=== PATIENT | female | born 1995 | race Caucasian/White ===

== ENCOUNTER 2016-07-20 20:19 | Emergency (ER) | payer SELFPAY ==
[~2016-07-20] VITALS: Ht 170.2 cm; Wt 110.0 kg
[2016-07-20 21:13] VITALS: Ht 170.2 cm; Wt 110.0 kg
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
[2016-07-20] MEDS ORDERED: IBUPROFEN 600 MG TAB PO ONE (22:30)
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
[2016-07-20] MEDS ORDERED: CYCL-319 PO (23:46)
[2016-07-20] MEDS ORDERED: IBUP-1542 PO (23:46)
== END 2016-07-21 00:12 | disposition home or self-care (01) ==
LOC: FTE 20:19
DX: S39.012A Strain of muscle, fascia and tendon of lower back, initial encounter (principal); V49.49XA Driver injured in collision with other motor vehicles in traffic accident, initial encounter
CPT/HCPCS: 72100